=== PATIENT | male | born 1975 | race Caucasian/White ===

== ENCOUNTER 2021-10-23 21:21 | Emergency (ER) | payer BC ==
[2021-10-23 22:24] LABS: HEMOGLOBIN 15.1 gm/dl (14.0-17.5); RED BLOOD COUNT 5.09 M/UL (4.20-5.50); WHITE BLOOD COUNT 11.1 K/UL (4.5-11.0)
[2021-10-23 22:45] LABS: BUN/CREATININE RATIO 11 (0-10)
[2021-10-24] MEDS ORDERED: OMNICEF 300 MG300 MG PO (01:59)
[2021-10-24] MEDS ORDERED: BACTRIM DS TAB1 EACH PO (01:59)
== END 2021-10-24 02:18 | disposition home or self-care (01) ==
LOC: ER1 21:21
PROVIDERS: Physician Assistant
DX: L03.012 Cellulitis of left finger (principal); E11.9 Type 2 diabetes mellitus without complications; F17.200 Nicotine dependence, unspecified, uncomplicated
CPT/HCPCS: 73130; 80053; 85025; 85652; 86140; 99283; J0696